=== PATIENT | female | born 1990 | race African-American/Black ===

== ENCOUNTER → 2016-07-14 | Outpatient (CLI) | payer OTHER ==
[~2016-07-14] MED LIST: BUSP10TA PO; CELE20TA PO; GLIM2TA PO; INSULANT SC; JANU100T PO; JANU50TA8 PO; METF-414 PO; OXYC5CAP28 PO; TRAZ25TA PO; VITA500019 PO
[2016-07-14 17:31] LABS: ALBUMIN 3.9 GM/DL (3.2-5.2); ALKALINE PHOSPHATASE 88 U/L (45-117); ALT/SGPT 61 U/L (12-78); ANION GAP 13 MEQ/L (8-16); AST/SGOT 37 U/L (15-37); BILIRUBIN,TOTAL 0.4 MG/DL (0.2-1.0); BLOOD UREA NITROGEN 8 MG/DL (7-18); CALCIUM LEVEL 9.3 MG/DL (8.5-10.1); CARBON DIOXIDE LEVEL 27 MEQ/L (21-32); CHLORIDE LEVEL 100 MEQ/L (98-107); CHOLESTEROL LEVEL 227 MG/DL (<200); CREATININE FOR GFR 0.74 MG/DL (0.55-1.02); GLOMERULAR FILTRATION RATE > 60.0 (>60); GLUCOSE, FASTING 206 MG/DL (70-105); POTASSIUM SERUM 3.6 MEQ/L (3.5-5.1); SODIUM LEVEL 140 MEQ/L (136-145); TOTAL PROTEIN 7.8 GM/DL (6.4-8.2); TRIGLYCERIDES LEVEL 267 MG/DL (<150)
== END ==
LOC: M WUC 14:37
PROVIDERS: ATTEND Family Medicine Addiction Medicine
DX: E11.9 Type 2 diabetes mellitus without complications (principal)

== ENCOUNTER → 2016-07-14 | Outpatient (CLI) | payer OTHER | LOC: M WUC 14:34 | PROVIDERS: ATTEND Physician Assistant Medical | DX: E11.65 Type 2 diabetes mellitus with hyperglycemia (principal) ==

== ENCOUNTER 2016-08-16 12:32 | Emergency (ER) | payer OTHER ==
[~2016-08-16] VITALS: Ht 167.6 cm; Wt 125.6 kg
[2016-08-16] MEDS ORDERED: OMEP10CASR PO (13:17)
[2016-08-16] MEDS ORDERED: VICT18IN SC (13:17)
[2016-08-16] MEDS ORDERED: HUMA100I3 SC (13:17)
[2016-08-16] MEDS ORDERED: TOUJ1.2I SC (13:17)
[2016-08-16] MEDS ORDERED: MORPHINE 4 MG/ML 1ML SYRINGE IV ONE (17:00)
[2016-08-16] MEDS ORDERED: NS 1,000 ML IV ONE (17:00)
[2016-08-16] MEDS ORDERED: METOCLOPRAMIDE INJ 10MG/2ML VIAL (J2765) IV ONE (17:00)
[2016-08-16] MEDS ORDERED: GASTROGRAFIN SOLUTION 30ML (Q9963) As Ordered ONE (17:07)
[2016-08-16] MEDS ORDERED: GASTROGRAFIN SOLUTION 30ML (Q9963) PO ONE ×2 (17:15)
[2016-08-16 17:55] LABS: BASO % 0.4 % (0.0-1.0); EOS # 0.1 K/mm3 (0.0-0.50); EOS % 1.3 % (0.0-3.0); LARGE UNSTAINED CELL # 0.2 K/mm3 (0.0-0.4); LARGE UNSTAINED CELL % 2.4 % (0.0-4.0); LYMPH # 2.4 K/mm3 (1.5-6.5); LYMPH % 36.7 % (24.0-44.0); MEAN CORPUSCULAR HEMOGLOBIN 29.9 pg (27.0-33.0); MEAN CORPUSCULAR HGB CONC 33.7 g/dl (32.0-36.5); MEAN CORPUSCULAR VOLUME 88.8 fl (80.0-96.0); MONO # 0.3 K/mm3 (0.0-0.8); MONO % 4.4 % (0.0-5.0); NEUTROPHILS # 3.6 K/mm3 (1.8-7.7); NEUTROPHILS % 54.8 % (36.0-66.0); PLATELET COUNT, AUTOMATED 214 k/mm3 (150-450); RED CELL DISTRIBUTION WIDTH 12.4 % (11.5-14.5); WHITE BLOOD COUNT 6.5 K/mm3 (4.0-10.0)
[2016-08-16 18:06] LABS: ALBUMIN 3.7 GM/DL (3.2-5.2); ALBUMIN/GLOBULIN RATIO 0.88 (1.00-1.93); ALKALINE PHOSPHATASE 92 U/L (45-117); ALT/SGPT 44 U/L (12-78); ANION GAP 10 MEQ/L (8-16); AST/SGOT 28 U/L (15-37); BILIRUBIN,DIRECT < 0.1 MG/DL (0.0-0.2); BILIRUBIN,TOTAL 0.3 MG/DL (0.2-1.0); BLOOD UREA NITROGEN 9 MG/DL (7-18); CARBON DIOXIDE LEVEL 26 MEQ/L (21-32); CHLORIDE LEVEL 103 MEQ/L (98-107); CREATININE FOR GFR 0.74 MG/DL (0.55-1.02); GLOMERULAR FILTRATION RATE > 60.0 (>60); GLUCOSE, FASTING 271 MG/DL (70-105); POTASSIUM SERUM 3.8 MEQ/L (3.5-5.1); SODIUM LEVEL 139 MEQ/L (136-145); TOTAL PROTEIN 7.9 GM/DL (6.4-8.2)
[2016-08-16] MEDS ORDERED: ISOVUE-370 76% 100ML VIAL (Q9967) As Ordered ONE (18:39)
--- NOTE | 2016-08-16 19:25 | REP ---
CT abdomen pelvis with IV and oral contrast: History: Lower abdominal pain. Blood in the stool. Question inflammatory bowel disease. CT contrast dose: 100 mL of Isovue 370 is administered intravenously. Comparison CT study 03/11/2016. CT findings: Preliminary digital manager drug safety radiograph is unremarkable. Lung window settings demonstrate that the lung bases are clear. There is moderate diffuse fatty infiltration of the liver again noted. No focal liver mass lesion is seen. Spleen is unremarkable. There is an accessory splenule anteriorly. This is unchanged. No adrenal lesion is observed on either side. No pancreatic mass or cyst is seen. The gallbladder is unremarkable. The kidneys enhance symmetrically and are morphologically intact. No abdominal wall defect is appreciated. No uterine or ovarian mass lesion is seen. There is some mural thickening in one of the distal ileal loops compatible with inflammatory bowel disease. This is not at the terminal most ileum but in the midline and to the left of midline in the distal ileum. No evidence of abscess or free air. No obstruction is seen. Normal appendix is observed. There are some regional lymph nodes in the small bowel mesentery. These are unchanged from the 03/11/2016 prior study. Urinary bladder is intact. Bone window settings show no bony destructive lesion. The SI joints are unremarkable. Impression: Mural thickening in one of the distal ileal small bowel loops consistent with inflammatory bowel disease such as Crohn's. There are a few slightly hypertrophied right lower quadrant mesenteric lymph nodes. There is moderate diffuse fatty infiltration of the liver. No other significant abnormality. Signed by Chuck Quijano MD 08/16/2016 08:23 P
[2016-08-16] MEDS ORDERED: FLAG500T PO (20:28)
[2016-08-16] MEDS ORDERED: PRED20TA PO (20:28)
[2016-08-16] MEDS ORDERED: HYDR-3713 PO (20:28)
[2016-08-16 20:35] VITALS: BP 126/75
--- NOTE | 2016-08-17 11:32 | ED PDOC ---
Provider Note radiology report faxed to Zoraida Rosario MD Aug 17, 2016 11:32
== END 2016-08-16 20:42 | disposition home or self-care (01) ==
LOC: M ED 14:13
DX: K50.90 Crohn's disease, unspecified, without complications (principal); K21.9 Gastro-esophageal reflux disease without esophagitis; E11.9 Type 2 diabetes mellitus without complications; E28.2 Polycystic ovarian syndrome; F32.9 Major depressive disorder, single episode, unspecified; F60.3 Borderline personality disorder; Z79.899 Other long term (current) drug therapy; Z79.4 Long term (current) use of insulin
CPT/HCPCS: 74177; 80048; 80076; 81001; 81025; 83690; 85025; 96374; 96375; 99283; J2765; Q9963; Q9967

== ENCOUNTER → 2016-08-17 | Outpatient (CLI) | payer OTHER ==
[~2016-08-17] MED LIST changes: +FLAG500T PO; +HUMA100I3 SC; +HYDR-3713 PO; +OMEP10CASR PO; +PRED20TA PO; +TOUJ1.2I SC; +VICT18IN SC
--- NOTE | 2016-08-17 11:25 | REP ---
Gastric emptying nuclear scintigraphy: History: Nausea, vomiting, early satiety and heartburn. Technique: 0.929 mCi of technetium-99m sulfur colloid was ingested in two scrambled eggs and 6 ounces of water and sequential anterior and posterior images are acquired for an 89-minute imaging observation period. Regions of interest are drawn around the stomach to plot gastric emptying. Scintigraphic findings: Expected T1/2 is 90 minutes. Negligible % emptying is observed in this patient during the 89-minute imaging observation period. The T1 half is not calculable as no observable emptying was recorded. Impression: Markedly delayed gastric emptying. No observed gastric emptying during the 89-minute imaging observation. Signed by Chuck Quijano MD 08/17/2016 11:16 A
--- NOTE | 2016-08-17 18:09 | REP ---
Clinical: Sitz marker study with chronic nausea. Technique: Two supine views of the abdomen and pelvis. Findings: The bowel gas pattern is nonspecific and contrast is identified within the colon related to recent CT evaluation. No residual sitz markers are identified within the enteric system. No organomegaly. No abnormal calcifications. Skeletal structures are intact. Impression: Nonspecific bowel gas pattern. Residual enteric colonic contrast from prior CT. No residual sitz markers. Signed by Ye Johnson MD 08/17/2016 06:01 P
== END ==
LOC: M RAD 08:43
PROVIDERS: ATTEND Physician Assistant Medical
DX: R11.2 Nausea with vomiting, unspecified (principal); R68.81 Early satiety; R12 Heartburn; E11.9 Type 2 diabetes mellitus without complications; R19.8 Other specified symptoms and signs involving the digestive system and abdomen

== ENCOUNTER → 2016-08-19 | Outpatient (CLI) | payer OTHER ==
[~2016-08-19] MED LIST changes: +E-Z PAQUE 60% w/v SUSP 355ML BOTTLE As Ordered ONE; +E-Z-GAS II EFFERVESCENT PACKET (SODIUM BICARB./CITRIC ACID/SIMETHICONE) As Ordered ONE; +E-Z-HD 98% w/w 340GM SUSP BTL As Ordered ONE
--- NOTE | 2016-08-19 16:49 | REP ---
ESOPHAGRAM, AIR CONTRAST: The procedure was performed under the direct supervision of Dr. Quijano. The images were reviewed with Dr. Quijano. A single view PA chest x-ray is submitted as a wildlife biology internship film. There is no change compared to a previous chest x-ray performed on 06/08/2015. Liquid barium and gas producing granules were given in the erect position as well as liquid barium in the prone oblique positions in order to perform a double contrast esophagram examination. The oral and pharyngeal stages of deglutition are unremarkable. Esophageal transport is prompt and efficient and there is no esophagitis, stricture, mucosal ring or hiatal hernia. The GE junction is patulous and there is gastroesophageal reflux demonstrated to the level of the thoracic inlet. IMPRESSION: The GE junction is patulous and there is gastroesophageal reflux demonstrated to the level of the thoracic inlet. Otherwise unremarkable double contrast esophagram examination. 40 seconds of fluoroscopy time was utilized for this procedure. Reviewed by MARY Harvey 08/20/2016 02:13 PEdited and Signed by Chuck Quijano MD 08/20/2016 05:02 P
== END ==
LOC: M RAD 10:01
PROVIDERS: ATTEND Physician Assistant Medical
DX: K21.9 Gastro-esophageal reflux disease without esophagitis (principal); R13.10 Dysphagia, unspecified; R12 Heartburn

== ENCOUNTER → 2016-08-27 | Outpatient (CLI) | payer OTHER ==
[~2016-08-27] VITALS: Ht 170.2 cm; Wt 125.6 kg
[~2016-08-27] MED LIST changes: -E-Z PAQUE 60% w/v SUSP 355ML BOTTLE As Ordered ONE; -E-Z-GAS II EFFERVESCENT PACKET (SODIUM BICARB./CITRIC ACID/SIMETHICONE) As Ordered ONE; -E-Z-HD 98% w/w 340GM SUSP BTL As Ordered ONE; +LIDOCAINE 2% INJ 100 MG/5 ML SDV (FOR ANES.) As Ordered ONE; +MIDAZOLAM INJ 2 MG/2 ML VIAL (J2250) As Ordered ONE; +NS 1,000 ML IV SCH; +PROPOFOL 500 MG/50 ML VIAL As Ordered ONE
--- NOTE | 2016-08-27 11:47 | ROOR ---
Patient Name: Courtney Garcia Procedure Date: 08/27/2016 11:33 AM Date of : 1990 Age: 26 Room: [facility] Gender: Female Note Status: Finalized Procedure: Upper GI endoscopy Indications: Gastroparesis, Nausea with vomiting Providers: Arturo JUNIOR MD Referring MD: Rocky BOLDEN MD Requesting Provider: Medicines: Monitored Anesthesia Care Complications: No immediate complications. Procedure: Pre-Anesthesia Assessment: - The heart rate, respiratory rate, oxygen saturations, blood pressure, adequacy of pulmonary ventilation, and response to care were monitored throughout the procedure. The Endoscope was introduced through the mouth, and advanced to the second part of duodenum. The upper GI endoscopy was accomplished without difficulty. The patient tolerated the procedure well. Findings: Non-severe esophagitis was found at the gastroesophageal junction. The esophagus was normal. The stomach was normal. The examined duodenum was normal. Impression: - Non-severe reflux esophagitis. - Normal esophagus. - Normal stomach. - Normal examined duodenum. -(Gastroparesis: there is no gastric oulet obstruction--pylorus is widely patent.) - No specimens collected. Recommendation: - Use Prilosec (omeprazole) 40 mg PO BID indefinitely. --Script sent to pharmacy - Gastroparesis diet: - Eat smaller, more frequent meals throughout the day. - Low fat diet. - Liquid/soft foods are tolerated better than solid foods. - Low fiber/well cooked vegetables are tolerated better than high fiber/fibrous foods/raw vegetables. - Avoid medications that inhibit gastric/intestinal motility such as narcotic medications. Arturo Junior MD Arturo JUNIOR MD 08/27/2016 11:46:41 AM This report has been signed electronically. Number of Addenda: 0 Note Initiated On: 08/27/2016 11:33 AM Estimated Blood Loss: Estimated blood loss: none.
--- NOTE | 2016-08-27 12:00 | ROOR ---
Patient Name: Courtney Garcia Procedure Date: 08/27/2016 11:33 AM Date of : 1990 Age: 26 Room: [facility] Gender: Female Note Status: Finalized Procedure: Colonoscopy Indications: Generalized abdominal pain, Change in bowel habits, Constipation, Diarrhea, suspected diabetic enteropathy Providers: Arturo JUNIOR MD Referring MD: Rocky BOLDEN MD Requesting Provider: Medicines: Monitored Anesthesia Care Complications: No immediate complications. Procedure: Pre-Anesthesia Assessment: - The heart rate, respiratory rate, oxygen saturations, blood pressure, adequacy of pulmonary ventilation, and response to care were monitored throughout the procedure. The Colonoscope was introduced through the anus and advanced to 5 cm into the ileum. The colonoscopy was performed without difficulty. The patient tolerated the procedure well. The quality of the bowel preparation was good. Findings: The perianal and digital rectal examinations were normal. The terminal ileum appeared normal. The colon appeared normal. Biopsies for histology were taken with a cold forceps for evaluation of microscopic colitis. Impression: - The examined portion of the ileum is normal. - The entire colon is normal. Biopsied. Recommendation: - Continue present medications. - Telephone endoscopist for pathology results in 2 weeks. Arturo Junior MD Arturo JUNIOR MD 08/27/2016 11:59:25 AM This report has been signed electronically. Number of Addenda: 0 Note Initiated On: 08/27/2016 11:33 AM Estimated Blood Loss: Estimated blood loss: none.
[2016-08-27 12:18] VITALS: BP 129/83
== END | disposition home or self-care (01) ==
LOC: M OPP 09:45
PROVIDERS: ATTEND Internal Medicine Gastroenterology
DX: R19.4 Change in bowel habit (principal); R10.84 Generalized abdominal pain; K59.00 Constipation, unspecified; R19.7 Diarrhea, unspecified; K31.84 Gastroparesis; R11.2 Nausea with vomiting, unspecified; K21.0 Gastro-esophageal reflux disease with esophagitis; R13.10 Dysphagia, unspecified; E78.5 Hyperlipidemia, unspecified; E11.9 Type 2 diabetes mellitus without complications; R12 Heartburn; F41.9 Anxiety disorder, unspecified; F32.9 Major depressive disorder, single episode, unspecified; E28.2 Polycystic ovarian syndrome; R06.83 Snoring; Z79.4 Long term (current) use of insulin; Z79.899 Other long term (current) drug therapy
CPT/HCPCS: 43235; 45380; 88305; 99156; 99157; J2250

== ENCOUNTER → 2016-09-01 | Outpatient (CLI) | payer OTHER ==
[~2016-09-01] MED LIST changes: +E-Z PAQUE 60% w/v SUSP 355ML BOTTLE As Ordered ONE; -LIDOCAINE 2% INJ 100 MG/5 ML SDV (FOR ANES.) As Ordered ONE; -MIDAZOLAM INJ 2 MG/2 ML VIAL (J2250) As Ordered ONE; -NS 1,000 ML IV SCH; -PROPOFOL 500 MG/50 ML VIAL As Ordered ONE
--- NOTE | 2016-09-01 16:33 | REP ---
SMALL BOWEL FOLLOW THROUGH: The procedure was performed under the direct supervision of Dr. Bill. The images were reviewed with Dr. Bill. The well logging captain mud analysis film shows no organomegaly or pathological masses. The intestinal gas pattern is nonspecific. Liquid barium was administered and the barium column was followed through the small bowel to the level of the terminal ileum. Small bowel transit time is approximately 3 hours and 50 minutes. During fluoroscopy, gentle palpation shows all loops are freely movable and pliable. There are no fixed or angulated loops. The small bowel mucosal pattern is normal in course and caliber. There is no transition to suggest a partial small bowel obstruction. Spot filming of the terminal ileum shows it to be unremarkable. IMPRESSION: Small bowel follow through examination within normal limits. 49 seconds of fluoroscopy time was utilized for this procedure. Reviewed by MARY Harvey 09/01/2016 04:37 PEdited and Signed by Davidson Bill MD 09/01/2016 05:01 P
== END ==
LOC: M RAD 09:08
PROVIDERS: ATTEND Physician Assistant Medical
DX: R93.3 Abnormal findings on diagnostic imaging of other parts of digestive tract (principal)

== ENCOUNTER → 2016-09-14 | Outpatient (CLI) | payer OTHER ==
[~2016-09-14] MED LIST changes: -E-Z PAQUE 60% w/v SUSP 355ML BOTTLE As Ordered ONE
== END ==
LOC: M LAB 16:15
PROVIDERS: ATTEND Physician Assistant Medical
DX: R19.7 Diarrhea, unspecified (principal)

== ENCOUNTER → 2016-10-04 | Outpatient (REF) | payer OTHER | LOC: M LAB REF 12:25 | PROVIDERS: ATTEND Physician Assistant Medical | DX: R19.7 Diarrhea, unspecified (principal) ==

== ENCOUNTER 2016-11-09 13:46 | Emergency (ER) | payer OTHER ==
[~2016-11-09] VITALS: Ht 167.6 cm; Wt 124.7 kg
[2016-11-09] MEDS ORDERED: INVO100T PO (13:56)
[2016-11-09] MEDS ORDERED: KETOROLAC 30 MG/ML VIAL (J1885) IV ONE (14:45)
[2016-11-09] MEDS ORDERED: NS 1,000 ML IV ONE (14:45)
[2016-11-09] MEDS ORDERED: ONDANSETRON 4MG/2ML VIAL (J2405) IV ONE (14:45)
--- NOTE | 2016-11-09 15:11 | REP ---
CT abdomen and pelvis without IV or oral contrast: Renal stone protocol. History: Right-sided abdominal pain, flank pain. Comparison CT study August 16, 2016. CT findings: Preliminary digital labor economics professor radiograph is unremarkable. The lung bases are essentially clear. There is moderate diffuse fatty infiltration of the liver. No definite focal liver lesion is seen. The gallbladder is unremarkable. Spleen is unremarkable. There is an accessory splenule again noted anterior to the spleen. No pancreatic lesion is seen. No adrenal abnormality is observed. There is no evidence of hydronephrosis on either side. No intrarenal calculus is seen. No retroperitoneal mass or adenopathy is observed. Small and large intestinal bowel loops are unremarkable. No abdominal wall defect is seen. No bony destructive lesion is seen. Impression: 1. Moderate diffuse fatty infiltration of the liver. 2. Otherwise unremarkable CT study of the abdomen and pelvis without IV or oral contrast. Signed by Chuck Quijano MD 11/09/2016 05:22 P
[2016-11-09 15:12] LABS: BASO % 0.5 % (0.0-1.0); EOS # 0.1 K/mm3 (0.0-0.50); LARGE UNSTAINED CELL # 0.1 K/mm3 (0.0-0.4); LARGE UNSTAINED CELL % 1.5 % (0.0-4.0); LYMPH # 2.2 K/mm3 (1.5-6.5); LYMPH % 35.8 % (24.0-44.0); MEAN CORPUSCULAR HEMOGLOBIN 30.2 pg (27.0-33.0); MEAN CORPUSCULAR VOLUME 88.6 fl (80.0-96.0); MONO # 0.2 K/mm3 (0.0-0.8); MONO % 3.7 % (0.0-5.0); NEUTROPHILS # 3.4 K/mm3 (1.8-7.7); NEUTROPHILS % 56.5 % (36.0-66.0); PLATELET COUNT, AUTOMATED 201 k/mm3 (150-450); RED CELL DISTRIBUTION WIDTH 12.6 % (11.5-14.5)
[2016-11-09 15:45] LABS: ALBUMIN 3.6 GM/DL (3.2-5.2); ALBUMIN/GLOBULIN RATIO 0.95 (1.00-1.93); ALKALINE PHOSPHATASE 113 U/L (45-117); ALT/SGPT 44 U/L (12-78); ANION GAP 12 MEQ/L (8-16); AST/SGOT 23 U/L (15-37); BILIRUBIN,TOTAL 0.3 MG/DL (0.2-1.0); BLOOD UREA NITROGEN 9 MG/DL (7-18); CALCIUM LEVEL 9.6 MG/DL (8.5-10.1); CARBON DIOXIDE LEVEL 23 MEQ/L (21-32); CHLORIDE LEVEL 99 MEQ/L (98-107); CREATININE FOR GFR 0.97 MG/DL (0.55-1.02); GLOMERULAR FILTRATION RATE > 60.0 (>60); POTASSIUM SERUM 4.3 MEQ/L (3.5-5.1); SODIUM LEVEL 134 MEQ/L (136-145); TOTAL PROTEIN 7.4 GM/DL (6.4-8.2)
[2016-11-09 15:55] LABS: GLUCOSE, FASTING 409 MG/DL (70-105)
[2016-11-09] MEDS ORDERED: HumaLOG INSULIN (NovoLOG) PER UNIT SC STA (16:01)
[2016-11-09] MEDS ORDERED: CLOTCRE3 TOP (17:04)
[2016-11-09 17:38] VITALS: BP 144/80
== END 2016-11-09 17:41 | disposition home or self-care (01) ==
LOC: M ED 14:28
DX: R30.0 Dysuria (principal); L29.8 Other pruritus; E11.8 Type 2 diabetes mellitus with unspecified complications; R10.9 Unspecified abdominal pain; K76.0 Fatty (change of) liver, not elsewhere classified

== ENCOUNTER → 2017-04-25 | Outpatient (CLI) | payer OTHER ==
[~2017-04-25] MED LIST changes: +BUSP15TA47; +CLOTCRE3 TOP; +INVO100T PO; +LINZ290C; +LISI2.5T3 PO; +MIRT30TA3; +NAPR500T PO; +RANI15TA PO; +SIMV40TA2; +VENL75CA47
--- NOTE | 2017-04-25 12:55 | REP ---
Clinical: Mass. Technique: AP and lateral soft tissue neck radiographs. Findings: The airway is patent, midline and normal in appearance. The surrounding soft tissues are unremarkable. No adenoid or tonsillar hypertrophy is appreciated. The osseous structures are intact and normal. No subcutaneous emphysema or radiodense foreign body. Impression: Normal soft tissue neck radiographs. Signed by Ye Johnson MD 04/25/2017 12:46 P
== END ==
LOC: M WUC 12:34
PROVIDERS: ATTEND Physician Assistant
DX: R22.1 Localized swelling, mass and lump, neck (principal)

== ENCOUNTER → 2017-04-27 | Outpatient (CLI) | payer OTHER ==
--- NOTE | 2017-04-27 16:55 | REP ---
ULTRASOUND SOFT TISSUES NECK: Real-time sonographic evaluation of the soft tissues of the neck are performed for palpable abnormality for the past 3 weeks. In the submental region. There are multiple lymph nodes identified. The largest measures 1.3 x 1.2 x 1.2 cm. This is mildly enlarged. With duplex Doppler evaluation this appears somewhat hyperemic. This may represent an inflamed lymph node. Other smaller lymph nodes are present. Signed by Christopher Lopez MD 05/02/2017 05:08 P
== END ==
LOC: M RAD 15:43
PROVIDERS: ATTEND Physician Assistant
DX: R22.1 Localized swelling, mass and lump, neck (principal)

== ENCOUNTER 2017-05-02 18:30 | Emergency (ER) | payer OTHER ==
[~2017-05-02] VITALS: Ht 167.6 cm; Wt 122.7 kg
[~2017-05-02 18:30] MED LIST changes: -BUSP15TA47; -LINZ290C; -LISI2.5T3 PO; -MIRT30TA3; -NAPR500T PO; -RANI15TA PO; -SIMV40TA2; -VENL75CA47
[2017-05-02] MEDS ORDERED: RANI15TA PO (18:45)
[2017-05-02] MEDS ORDERED: SIMV40TA2 (18:45)
[2017-05-02] MEDS ORDERED: MIRT30TA3 (18:45)
[2017-05-02] MEDS ORDERED: LINZ290C (18:45)
[2017-05-02] MEDS ORDERED: LISI2.5T3 PO (18:45)
[2017-05-02] MEDS ORDERED: VENL75CA47 (18:45)
[2017-05-02] MEDS ORDERED: BUSP15TA47 (18:45)
[2017-05-02 21:56] VITALS: BP 154/99
[2017-05-02] MEDS ORDERED: NAPROXEN 250 MG TAB PO ONE (23:15)
[2017-05-02] MEDS ORDERED: NAPR500T PO (23:17)
== END 2017-05-02 23:36 | disposition home or self-care (01) ==
LOC: M ED 18:30
DX: R59.0 Localized enlarged lymph nodes (principal); Z79.899 Other long term (current) drug therapy; Z79.4 Long term (current) use of insulin

== ENCOUNTER → 2017-05-06 | Outpatient (REF) | payer OTHER ==
[~2017-05-06] MED LIST changes: +BUSP15TA47; +LINZ290C; +LISI2.5T3 PO; +MIRT30TA3; +NAPR500T PO; +RANI15TA PO; +SIMV40TA2; +VENL75CA47
[2017-05-06 19:12] LABS: BASO # 0.1 10^3/uL (0.0-0.2); BASO % 0.9 % (0.0-1.0); EOS # 0.1 10^3/uL (0.0-0.50); EOS % 1.3 % (0.0-3.0); IMMATURE GRANULOCYTE % 0.9 % (0-0); LYMPH # 2.6 10^3/uL (1.5-6.5); LYMPH % 46.5 % (24.0-44.0); MEAN CORPUSCULAR HGB CONC 33.7 g/dl (32.0-36.5); MONO # 0.4 10^3/uL (0.0-0.8); MONO % 6.7 % (0.0-5.0); NEUTROPHILS # 2.4 10^3/uL (1.8-7.7); NEUTROPHILS % 43.7 % (36.0-66.0); PLATELET COUNT, AUTOMATED 208 10^3/uL (150-450); RED CELL DISTRIBUTION WIDTH 11.9 % (11.5-14.5); WHITE BLOOD COUNT 5.6 10^3/uL (4.0-10.0)
== END ==
LOC: M SFHCCLAY 11:51
PROVIDERS: ATTEND Family Medicine
DX: R22.1 Localized swelling, mass and lump, neck (principal); R53.83 Other fatigue

== ENCOUNTER → 2017-05-19 | Outpatient (CLI) | payer OTHER ==
--- NOTE | 2017-05-19 17:37 | REP ---
Soft-tissue neck CT study without contrast: History: Localized swelling. Mass or lump. Comparison soft tissue neck x-ray April 25, 2017. Comparison sonography April 27, 2017 showed multiple lymph nodes the largest of which was 1.3 centimeters in greatest diameter. CT findings: There is shoddy bilateral cervical lymphadenopathy in the suprahyoid and infrahyoid neck. This includes submental adenopathy where the largest lymph node is 1.7 x 1.4 cm. The largest lymph node in the neck is in the left anterior jugular chain at the level of the thyroid cartilage posterior to the sternocleidomastoid. This lymph node measures 19 x 22 x 31 mm. Thyroid lobes are normal and symmetric. Salivary glands are unremarkable. No tonsillar or peritonsillar mass is seen. The visualized paranasal sinuses are clear. The lung apices are clear. No bony abnormality is seen. Impression: Cervical lymphadenopathy with the largest lymph node measuring up to 3.1 cm. This combined with the anechoic appearance of the lymph node seen sonographically is somewhat worrisome. I would recommend ultrasound guided fine needle aspiration or core needle biopsy of the largest cervical lymph node. Signed by Chuck Quijano MD 05/20/2017 08:17 A
== END ==
LOC: M RAD 16:31
PROVIDERS: ATTEND Family Medicine
DX: R22.1 Localized swelling, mass and lump, neck (principal)

== ENCOUNTER → 2017-05-25 | Outpatient (REF) | payer OTHER | LOC: M LAB REF 12:34 | PROVIDERS: ATTEND Otolaryngology | DX: E04.1 Nontoxic single thyroid nodule (principal) ==

== ENCOUNTER 2017-06-13 10:09 | Day surgery (SDC) | payer OTHER ==
[2017-06-13] MEDS ORDERED: LR 1,000 ML IV ×4 (10:30→15:00)
[2017-06-13] MEDS ORDERED: HumaLOG INSULIN (NovoLOG) PER UNIT As Ordered (10:54)
[2017-06-13 11:06] LABS: BEDSIDE GLUCOSE 318 MG/DL (70-105)
[2017-06-13] MEDS ORDERED: HumaLOG INSULIN (NovoLOG) PER UNIT SC (11:15)
[2017-06-13 12:08] LABS: CONTROL LINE UCG INT CTR LINE PRESENT; URINE PREG TEST NEGATIVE (NEGATIVE)
[2017-06-13 12:24] LABS: BEDSIDE GLUCOSE 266 MG/DL (70-105)
[2017-06-13] MEDS ORDERED: LIDOCAINE 2% INJ 100 MG/5 ML SDV (FOR ANES.) As Ordered (13:41)
[2017-06-13] MEDS ORDERED: fentaNYL 100 MCG/2 ML INJECTION (J3010) As Ordered ×2 (13:41→13:48)
[2017-06-13] MEDS ORDERED: MIDAZOLAM INJ 2 MG/2 ML VIAL (J2250) As Ordered (13:41)
[2017-06-13] MEDS ORDERED: PROPOFOL 200 MG/20 ML VIAL As Ordered (13:41)
[2017-06-13] MEDS ORDERED: ROCURONIUM BROMIDE 50 MG/5 ML VIAL As Ordered (13:41)
[2017-06-13] MEDS: BACITRACIN OINT 30GM As Ordered (13:57)
[2017-06-13] MEDS: LIDOCAINE W/EPINEPHRINE 1% 20ML VIAL As Ordered (13:57)
[2017-06-13] MEDS ORDERED: ONDANSETRON 4MG/2ML VIAL (J2405) As Ordered (14:05)
[2017-06-13] MEDS ORDERED: GLYCOPYRROLATE INJ 0.2 MG/ML 2 ML VIAL As Ordered (14:05)
[2017-06-13] MEDS ORDERED: KETOROLAC 60 MG/2 ML VIAL (J1885) As Ordered (14:05)
[2017-06-13] MEDS ORDERED: NEOSTIGMINE 10 MG/10 ML VIAL (J2710) As Ordered (14:05)
[2017-06-13] MEDS ORDERED: ACETAMINOPH W/CODEINE #3 TAB UD PO (15:00)
[2017-06-13] MEDS ORDERED: fentaNYL 100 MCG/2 ML INJECTION (J3010) IV (15:00)
[2017-06-13 15:25] LABS: BEDSIDE GLUCOSE 221 MG/DL (70-105)
[2017-06-13] MEDS: ONDANSETRON 4MG/2ML VIAL (J2405) IV (15:41)
== END 2017-06-13 17:13 | disposition home or self-care (01) ==
LOC: M SDC 10:09
DX: R22.1 Localized swelling, mass and lump, neck (principal); E11.65 Type 2 diabetes mellitus with hyperglycemia; E11.43 Type 2 diabetes mellitus with diabetic autonomic (poly)neuropathy; E78.00 Pure hypercholesterolemia, unspecified; K21.9 Gastro-esophageal reflux disease without esophagitis; F41.9 Anxiety disorder, unspecified; F32.1 Major depressive disorder, single episode, moderate; F60.3 Borderline personality disorder; K31.84 Gastroparesis; E66.01 Morbid (severe) obesity due to excess calories; Z68.44 Body mass index [BMI] 60.0-69.9, adult; Z79.4 Long term (current) use of insulin; Z79.899 Other long term (current) drug therapy
CPT/HCPCS: 21555

== ENCOUNTER 2017-06-20 22:47 | Emergency (ER) | payer OTHER ==
[2017-06-21 04:38] LABS: CONTROL LINE HCG INT CTR LINE PRESENT; HCG, SERUM QUALITATIVE NEGATIVE (NEGATIVE)
[2017-06-21 04:46] LABS: BLOOD UREA NITROGEN 8 MG/DL (7-18); GLUCOSE, FASTING 192 MG/DL (70-105)
[2017-06-21 04:47] LABS: ANION GAP 9 MEQ/L (8-16); C REACTIVE PROTEIN QUANTITATIV 0.66 MG/DL (0.00-0.30); CALCIUM LEVEL 8.4 MG/DL (8.5-10.1); CARBON DIOXIDE LEVEL 26 MEQ/L (21-32); CHLORIDE LEVEL 105 MEQ/L (98-107); CREATININE FOR GFR 0.62 MG/DL (0.55-1.02); GLOMERULAR FILTRATION RATE > 60.0 (>60); POTASSIUM SERUM 3.9 MEQ/L (3.5-5.1); SODIUM LEVEL 140 MEQ/L (136-145)
[2017-06-21 04:51] LABS: HEMATOCRIT 38.6 % (36.0-47.0); HEMOGLOBIN 12.9 g/dl (12.0-16.0); MEAN CORPUSCULAR HEMOGLOBIN 28.6 pg (27.0-33.0); MEAN CORPUSCULAR VOLUME 85.6 fl (80.0-96.0); RED BLOOD COUNT 4.51 10^6/uL (4.00-5.40); WHITE BLOOD COUNT 5.8 10^3/uL (4.0-10.0)
[2017-06-21 04:52] LABS: BASO % 0.7 % (0.0-1.0); EOS # 0.3 10^3/uL (0.0-0.50); IMMATURE GRANULOCYTE % 0.3 % (0-0); LYMPH # 2.7 10^3/uL (1.5-6.5); LYMPH % 46.1 % (24.0-44.0); MEAN CORPUSCULAR HGB CONC 33.4 g/dl (32.0-36.5); MONO # 0.4 10^3/uL (0.0-0.8); NEUTROPHILS # 2.4 10^3/uL (1.8-7.7); NEUTROPHILS % 40.9 % (36.0-66.0); PLATELET COUNT, AUTOMATED 258 10^3/uL (150-450); RED CELL DISTRIBUTION WIDTH 12.3 % (11.5-14.5)
[2017-06-21] MEDS ORDERED: ISOVUE-370 76% 100ML VIAL (Q9967) As Ordered (04:52)
== END 2017-06-21 06:16 | disposition home or self-care (01) ==
LOC: M ED 22:47
DX: R68.84 Jaw pain (principal); G89.18 Other acute postprocedural pain; Z79.899 Other long term (current) drug therapy; Z79.4 Long term (current) use of insulin
CPT/HCPCS: Q9967

== ENCOUNTER → 2017-07-08 | Outpatient (REF) | payer OTHER | LOC: M SFHCWAGY 13:53 | DX: Z12.4 Encounter for screening for malignant neoplasm of cervix (principal) | CPT/HCPCS: 88142 ==

== ENCOUNTER → 2017-07-15 | Outpatient (REF) | payer OTHER ==
[2017-07-15 18:12] LABS: ALBUMIN 3.3 GM/DL (3.2-5.2); ALBUMIN/GLOBULIN RATIO 0.89 (1.00-1.93); ALKALINE PHOSPHATASE 76 U/L (45-117); ALT/SGPT 27 U/L (12-78); ANION GAP 9 MEQ/L (8-16); AST/SGOT 15 U/L (7-37); BILIRUBIN,TOTAL 0.3 MG/DL (0.2-1.0); BLOOD UREA NITROGEN 13 MG/DL (7-18); CALCIUM LEVEL 8.6 MG/DL (8.5-10.1); CARBON DIOXIDE LEVEL 26 MEQ/L (21-32); CHLORIDE LEVEL 102 MEQ/L (98-107); CREATININE FOR GFR 0.62 MG/DL (0.55-1.30); GLOMERULAR FILTRATION RATE > 60.0 (>60); GLUCOSE, FASTING 266 MG/DL (70-100); POTASSIUM SERUM 4.5 MEQ/L (3.5-5.1); SODIUM LEVEL 137 MEQ/L (136-145)
[2017-07-15 18:30] LABS: ESTIMATED AVERAGE GLUCOSE 237 MG/DL (60-110); HEMOGLOBIN A1c 9.9 %
== END ==
LOC: M SFHCCLAY 09:59
DX: E11.65 Type 2 diabetes mellitus with hyperglycemia (principal)

== ENCOUNTER → 2017-07-15 | Outpatient (CLI) | payer OTHER | LOC: M SLEEP HO 12:32 | DX: G47.30 Sleep apnea, unspecified (principal) ==

== ENCOUNTER → 2017-08-01 | Outpatient (REF) | payer OTHER | LOC: M LAB REF 11:58 | DX: R19.7 Diarrhea, unspecified (principal) ==

== ENCOUNTER → 2017-09-08 | Outpatient (CLI) | payer OTHER ==
[~2017-09-08] MED LIST changes: -BUSP10TA PO; -BUSP15TA47; -CELE20TA PO; -CLOTCRE3 TOP; -FLAG500T PO; +GASTROGRAFIN SOLUTION 30ML (Q9963) As Ordered; -GLIM2TA PO; -HUMA100I3 SC; -HYDR-3713 PO; -INSULANT SC; -INVO100T PO; +ISOVUE-370 76% 100ML VIAL (Q9967) As Ordered; -JANU100T PO; -JANU50TA8 PO; -LINZ290C; -LISI2.5T3 PO; -METF-414 PO; -MIRT30TA3; -NAPR500T PO; -OMEP10CASR PO; -OXYC5CAP28 PO; -PRED20TA PO; -RANI15TA PO; -SIMV40TA2; -TOUJ1.2I SC; -TRAZ25TA PO; -VENL75CA47; -VICT18IN SC; -VITA500019 PO
== END ==
LOC: M RAD 09:38
DX: R19.7 Diarrhea, unspecified (principal); R10.84 Generalized abdominal pain
CPT/HCPCS: Q9963

== ENCOUNTER 2017-09-09 15:21 | Emergency (ER) | payer OTHER ==
[2017-09-09 17:05] LABS: KETONE, URINE AUTO RFX TRACE mg/dL (NEGATIVE); LEUKOCYTE ESTERASE UR AUTO RFX TRACE (NEGATIVE); MUCUS, URINE RFX SMALL (NEGATIVE); NITRITE, URINE AUTO RFX NEGATIVE (NEGATIVE); RBC, URINE AUTO RFX 2 /HPF (0-3); SPECIFIC GRAVITY UR AUTO RFX 1.037 (1.002-1.035); SQUAM EPITHELIAL CELL UR AURFX 0 /HPF (0-6); WBC, URINE AUTO RFX 1 /HPF (0-3)
[2017-09-09 18:10] LABS: BASO % 0.4 % (0.0-1.0); EOS # 0.1 10^3/uL (0.0-0.50); EOS % 1.4 % (0.0-3.0); HEMATOCRIT 44.5 % (36.0-47.0); HEMOGLOBIN 15.2 g/dl (12.0-15.5); IMMATURE GRANULOCYTE % 0.4 % (0-3.0); LYMPH # 2.9 10^3/uL (1.5-6.5); LYMPH % 39.7 % (24.0-44.0); MEAN CORPUSCULAR HGB CONC 34.2 g/dl (32.0-36.5); MEAN CORPUSCULAR VOLUME 84.9 fl (80.0-96.0); MONO # 0.4 10^3/uL (0.0-0.8); MONO % 5.5 % (0.0-5.0); NEUTROPHILS # 3.8 10^3/uL (1.8-7.7); NEUTROPHILS % 52.6 % (36.0-66.0); PLATELET COUNT, AUTOMATED 255 10^3/uL (150-450); RED BLOOD COUNT 5.24 10^6/uL (4.00-5.40); RED CELL DISTRIBUTION WIDTH 12.8 % (11.5-14.5); WHITE BLOOD COUNT 7.2 10^3/uL (4.0-10.0)
[2017-09-09 18:30] LABS: ALBUMIN 3.9 GM/DL (3.2-5.2); ALBUMIN/GLOBULIN RATIO 0.87 (1.00-1.93); ALKALINE PHOSPHATASE 115 U/L (45-117); ALT/SGPT 38 U/L (12-78); AMYLASE 30 U/L (25-115); ANION GAP 9 MEQ/L (8-16); AST/SGOT 22 U/L (7-37); BILIRUBIN,DIRECT < 0.1 MG/DL (0.0-0.2); BILIRUBIN,TOTAL 0.3 MG/DL (0.2-1.0); BLOOD UREA NITROGEN 9 MG/DL (7-18); CALCIUM LEVEL 9.1 MG/DL (8.5-10.1); CARBON DIOXIDE LEVEL 24 MEQ/L (21-32); CHLORIDE LEVEL 101 MEQ/L (98-107); CREATININE FOR GFR 0.77 MG/DL (0.55-1.30); GLOMERULAR FILTRATION RATE > 60.0 (>60); GLUCOSE, FASTING 324 MG/DL (70-100); LIPASE 65 U/L (73-393); POTASSIUM SERUM 3.9 MEQ/L (3.5-5.1); SODIUM LEVEL 134 MEQ/L (136-145); TOTAL PROTEIN 8.4 GM/DL (6.4-8.2)
== END 2017-09-09 19:30 | disposition home or self-care (01) ==
LOC: M ED 15:21
DX: R10.9 Unspecified abdominal pain (principal); R73.09 Other abnormal glucose; K31.84 Gastroparesis; K21.9 Gastro-esophageal reflux disease without esophagitis; F41.9 Anxiety disorder, unspecified; F32.9 Major depressive disorder, single episode, unspecified; E28.2 Polycystic ovarian syndrome; Z79.899 Other long term (current) drug therapy; Z79.4 Long term (current) use of insulin
CPT/HCPCS: 82150

== ENCOUNTER → 2018-01-18 | Outpatient (CLI) | payer OTHER ==
[2018-01-18 14:17] LABS: ANION GAP 10 MEQ/L (8-16); BLOOD UREA NITROGEN 11 MG/DL (7-18); CALCIUM LEVEL 9.5 MG/DL (8.5-10.1); CARBON DIOXIDE LEVEL 28 MEQ/L (21-32); CHLORIDE LEVEL 99 MEQ/L (98-107); CREATININE FOR GFR 0.79 MG/DL (0.55-1.30); GLOMERULAR FILTRATION RATE > 60.0 (>60); GLUCOSE, FASTING 333 MG/DL (70-100); POTASSIUM SERUM 4.7 MEQ/L (3.5-5.1); SODIUM LEVEL 137 MEQ/L (136-145)
[2018-01-18 14:34] LABS: ESTIMATED AVERAGE GLUCOSE 203 MG/DL (60-110); HEMOGLOBIN A1c 8.7 %
[2018-01-19 14:16] LABS: C-PEPTIDE 3.9 ng/mL (1.1-4.4)
== END ==
LOC: M WUC 11:36
DX: E11.65 Type 2 diabetes mellitus with hyperglycemia (principal)
CPT/HCPCS: 83036

== ENCOUNTER 2018-05-28 23:15 | Emergency (ER) | payer MEDICAID, OTHER ==
[~2018-05-28] VITALS: Ht 167.6 cm; Wt 131.8 kg
[~2018-05-28 23:15] MED LIST changes: +ATOR40TA75 PO; +BUSP10TA PO; +BUSP15TA47; +CELE20TA PO; +CLOTCRE3 TOP; +FLAG500T PO; -GASTROGRAFIN SOLUTION 30ML (Q9963) As Ordered; +GLIM2TA PO; +HUMA100I3 SC; +HYDR-3713 PO; +INSULANT SC; +INVO100T PO; -ISOVUE-370 76% 100ML VIAL (Q9967) As Ordered; +JANU100T PO; +JANU50TA8 PO; +LINZ290C; +LISI2.5T5 PO; +METF-414 PO; +MIRT30TA3 PO; +NAPR-49 PO; +OMEP10CASR PO; +OXYC5CAP28 PO; +PRED20TA PO; +RANI15TA PO; +SIMV40TA2 PO; +TOUJ1.2I SC; +TRAZ25TA PO; +VENL150C43 PO; +VENL75CA47 PO; +VICT18IN SC; +VITA500019 PO; +ZOFR4TAB16 PO
[2018-05-28] MEDS ORDERED: ADME100I SC (23:23)
[2018-05-28] MEDS ORDERED: DULC10SU2 PR (23:23)
[2018-05-29] MEDS ORDERED: NS 1,000 ML IV ONE
[2018-05-29 00:58] LABS: BASO % 0.4 % (0.0-1.0); EOS # 0.1 10^3/uL (0.0-0.50); EOS % 0.9 % (0.0-3.0); HEMATOCRIT 40.5 % (36.0-47.0); HEMOGLOBIN 13.6 g/dl (12.0-15.5); LYMPH # 2.1 10^3/uL (1.5-6.5); LYMPH % 25.2 % (24.0-44.0); MEAN CORPUSCULAR HEMOGLOBIN 29.2 pg (27.0-33.0); MEAN CORPUSCULAR HGB CONC 33.6 g/dl (32.0-36.5); MEAN CORPUSCULAR VOLUME 86.9 fl (80.0-96.0); MONO # 0.4 10^3/uL (0.0-0.8); MONO % 4.4 % (0.0-5.0); NEUTROPHILS # 5.7 10^3/uL (1.8-7.7); NEUTROPHILS % 68.6 % (36.0-66.0); PLATELET COUNT, AUTOMATED 247 10^3/uL (150-450); RED BLOOD COUNT 4.66 10^6/uL (4.00-5.40); WHITE BLOOD COUNT 8.2 10^3/uL (4.0-10.0)
[2018-05-29 01:00] LABS: ALBUMIN 3.6 GM/DL (3.2-5.2); ALT/SGPT 33 U/L (12-78); BILIRUBIN,TOTAL 0.4 MG/DL (0.2-1.0); BLOOD UREA NITROGEN 11 MG/DL (7-18); CARBON DIOXIDE LEVEL 27 MEQ/L (21-32); CHLORIDE LEVEL 104 MEQ/L (98-107); CREATININE FOR GFR 0.71 MG/DL (0.55-1.30); GLOMERULAR FILTRATION RATE > 60.0 (>60); GLUCOSE, FASTING 226 MG/DL (70-100); LIPASE 45 U/L (73-393); POTASSIUM SERUM 4.3 MEQ/L (3.5-5.1); SODIUM LEVEL 138 MEQ/L (136-145); TOTAL PROTEIN 7.8 GM/DL (6.4-8.2)
[2018-05-29] MEDS ORDERED: ONDANSETRON 4MG/2ML VIAL (J2405) IV ONE (01:30)
[2018-05-29] MEDS ORDERED: KETOROLAC 30 MG/ML VIAL (J1885) IV ONE (01:30)
[2018-05-29] MEDS ORDERED: ZOFR4TAB14 PO (01:49)
[2018-05-29 01:55] VITALS: BP 135/82
[2018-05-29] MEDS ORDERED: MAGNESIUM CITRATE 300 ML BTL PO ONE (02:00)
--- NOTE | 2018-05-29 05:52 | REP ---
Clinical: Abdominal pain with nausea and vomiting. Technique: Upright view of the chest with supine and upright views of the abdomen and pelvis. Findings: Frontal upright view of the chest demonstrates no acute cardiopulmonary process or free air below the diaphragm to suspect pneumoperitoneum. Supine and upright views of the abdomen and pelvis demonstrate nonspecific bowel gas pattern without obstruction or perforation. No organomegaly. No abnormal calcifications. Skeletal structures normal for age. Impression: Nonspecific bowel gas pattern. Electronically Signed by eY Johnson MD 05/29/2018 05:43 A
== END 2018-05-29 01:59 | disposition home or self-care (01) ==
LOC: M ED 23:15
DX: K59.00 Constipation, unspecified (principal); E11.9 Type 2 diabetes mellitus without complications; I10 Essential (primary) hypertension; E78.5 Hyperlipidemia, unspecified; K31.84 Gastroparesis; Z79.899 Other long term (current) drug therapy
CPT/HCPCS: 74021; 80053; 83690; 85025; 96374; 96375; 99284; J1885; J2405

== ENCOUNTER → 2018-07-03 | Outpatient (CLI) | payer MEDICAID ==
[~2018-07-03] MED LIST changes: +ADME100I SC; +DULC10SU2 PR; -NAPR-49 PO; +NAPR-50 PO; +ZOFR4TAB14 PO
--- NOTE | 2018-07-03 14:49 | REP ---
Clinical: Pain with diagnosis of stress fracture . Technique: AP, lateral, bilateral oblique views right foot . Findings: The osseous structures and joint spaces are intact and normal. There is no evidence for acute fracture or dislocation. Surrounding soft tissues are unremarkable. No subcutaneous emphysema or radiodense foreign body. Impression: No acute fracture or dislocation. Electronically Signed by Ye Johnson MD 07/03/2018 02:40 P
== END ==
LOC: M WUC 14:18
PROVIDERS: ATTEND Physician Assistant
DX: M79.671 Pain in right foot (principal)

== ENCOUNTER → 2018-09-01 | Outpatient (REF) | payer OTHER | LOC: M SFHCWAGY 13:47 | PROVIDERS: ATTEND Family Medicine | DX: Z12.4 Encounter for screening for malignant neoplasm of cervix (principal); N87.0 Mild cervical dysplasia ==

== ENCOUNTER → 2018-11-27 | Outpatient (CLI) | payer OTHER ==
[~2018-11-27] MED LIST changes: -GLIM2TA PO; +GLIM2TAB29 PO; +LISI-1046 PO; -LISI2.5T5 PO; -NAPR-50 PO; +NAPR-837 PO; +TRAZ1TAB6 PO; -TRAZ25TA PO
--- NOTE | 2018-11-27 09:17 | REP ---
Nickel: Abdominal pain and nausea. Technique: Real time dillard scale ultrasound examination using curved array transducer. Findings: Liver demonstrates mild fatty infiltration without focal hepatic lesion identified. Pancreas is unremarkable. The spleen is mildly enlarged and measures 13.5 x 13.5 x 5.2 cm (splenic index = 948) without significant focal splenic lesion identified. Gallbladder is normal and without gallstones, wall thickening, or pericholecystic fluid. No sonographic Traore's sign was elicited. Common bile duct is upper limits of normal at 7.5 mm diameter without obvious obstructing lesion/cause. The bilateral kidneys are normal in reniform shape without hydronephrosis or obvious abnormality. Right kidney measures 14.8 x 7.0 x 4.9 cm. Left kidney measures 12.8 x 6.6 x 6.6 cm. Abdominal aorta is normal and measures 2.0 cm maximal diameter. No ascites. Impression: 1. Hepatic steatosis without focal hepatic lesion. 2. Mildly enlarged spleen with significant focal splenic abnormality noted. 3. Normal appearance to the gallbladder with CBD upper limits of normal diameter. Electronically Signed by Ye Johnson MD 11/27/2018 09:08 A
== END ==
LOC: M RAD 08:14
DX: K76.0 Fatty (change of) liver, not elsewhere classified (principal); R16.1 Splenomegaly, not elsewhere classified

== ENCOUNTER → 2018-12-08 | Outpatient (CLI) | payer OTHER ==
[2018-12-08 17:34] LABS: ALBUMIN 3.6 GM/DL (3.2-5.2); ALT/SGPT 31 U/L (12-78); BILIRUBIN,TOTAL 0.5 MG/DL (0.2-1.0); BLOOD UREA NITROGEN 10 MG/DL (7-18); CALCIUM LEVEL 9.1 MG/DL (8.5-10.1); CARBON DIOXIDE LEVEL 24 MEQ/L (21-32); CHLORIDE LEVEL 104 MEQ/L (98-107); CREATININE FOR GFR 0.79 MG/DL (0.55-1.30); GLOMERULAR FILTRATION RATE > 60.0 (>60); GLUCOSE, FASTING 238 MG/DL (70-100); POTASSIUM SERUM 4.2 MEQ/L (3.5-5.1); SODIUM LEVEL 138 MEQ/L (136-145); TOTAL PROTEIN 7.2 GM/DL (6.4-8.2)
[2018-12-08 17:36] LABS: BASO % 0.2 % (0.0-1.0); EOS # 0.1 10^3/uL (0.0-0.50); EOS % 1.7 % (0.0-3.0); HEMATOCRIT 41.7 % (36.0-47.0); HEMOGLOBIN 14.1 g/dl (12.0-15.5); LYMPH # 2.3 10^3/uL (1.5-4.5); LYMPH % 41.5 % (24.0-44.0); MEAN CORPUSCULAR HEMOGLOBIN 30.1 pg (27.0-33.0); MEAN CORPUSCULAR HGB CONC 33.8 g/dl (32.0-36.5); MEAN CORPUSCULAR VOLUME 88.9 fl (80.0-96.0); MONO # 0.3 10^3/uL (0.0-0.8); MONO % 5.9 % (0.0-5.0); NEUTROPHILS # 2.8 10^3/uL (1.8-7.7); NEUTROPHILS % 50.3 % (36.0-66.0); PLATELET COUNT, AUTOMATED 217 10^3/uL (150-450); RED BLOOD COUNT 4.69 10^6/uL (4.00-5.40); WHITE BLOOD COUNT 5.5 10^3/uL (4.0-10.0)
[2018-12-12 14:24] LABS: ANCA-ATYPICAL <1:20 titer (Neg:<1:20); ANTI-SACCHAROMYCES CEREV. IgA <20.0 Units (0.0-24.9); CYTOPLASMIC NEUTROP AB ANCA-C <1:20 titer (Neg:<1:20); PERINUCLEAR AB ANCA-P <1:20 titer (Neg:<1:20)
== END ==
LOC: M WUC 14:02
PROVIDERS: ATTEND Internal Medicine Gastroenterology
DX: K31.84 Gastroparesis (principal)

== ENCOUNTER → 2019-04-18 | Outpatient (CLI) | payer OTHER ==
--- NOTE | 2019-04-18 17:05 | REP ---
Five views right hand: 04/18/2019. Indication: Right hand pain. Comparison: None. Findings: There is no acute fracture, subluxation or dislocation. No significant arthritic process is present. No erosive lesions of the visualized bones are present. Impression: No acute fracture. Electronically Signed by Gage Mojica DO 04/18/2019 04:57 P
== END ==
LOC: M WUC 09:09
PROVIDERS: ATTEND Nurse Practitioner Family
DX: M25.541 Pain in joints of right hand (principal)

== ENCOUNTER → 2019-11-07 | Outpatient (REF) | payer OTHER ==
[~2019-11-07] MED LIST changes: -LISI-1046 PO; +LISI2.5T2 PO; -SIMV40TA2 PO; +SIMV40TA20 PO
== END ==
LOC: M SFHCWAGY 08:42
PROVIDERS: ATTEND Nurse Practitioner Family
DX: Z12.4 Encounter for screening for malignant neoplasm of cervix (principal)

== ENCOUNTER 2019-11-26 22:26 | Emergency (ER) | payer OTHER ==
[~2019-11-26] VITALS: Ht 167.6 cm; Wt 115.9 kg
[2019-11-26] MEDS ORDERED: ABIL1TAB13 PO (22:34)
[2019-11-26] MEDS ORDERED: CLONI1TA PO (22:34)
[2019-11-26] MEDS ORDERED: WELL100T2 PO (22:34)
[2019-11-26] MEDS ORDERED: XANA0.25 PO (22:34)
[2019-11-26] MEDS ORDERED: LIDOCAINE 1% MDV 20ML VIAL As Ordered ONE (22:44)
[2019-11-26] MEDS ORDERED: LIDOCAINE 1% MDV 20ML VIAL SC ONE (22:45)
[2019-11-26] MEDS ORDERED: BOOSTRIX/ADACEL VACCINE (DIPHTH/PERTUSS/ACELL/TETANUS) 0.5ML SYR IM ONE (23:00)
[2019-11-26 23:25] VITALS: BP 104/64
== END 2019-11-26 23:32 | disposition home or self-care (01) ==
LOC: M ED 22:26
DX: S61.012A Laceration without foreign body of left thumb without damage to nail, initial encounter (principal); W26.8XXA Contact with other sharp object(s), not elsewhere classified, initial encounter; Y92.9 Unspecified place or not applicable; Y93.9 Activity, unspecified; Y99.9 Unspecified external cause status; E11.9 Type 2 diabetes mellitus without complications; I10 Essential (primary) hypertension; E28.2 Polycystic ovarian syndrome; F41.9 Anxiety disorder, unspecified; F32.9 Major depressive disorder, single episode, unspecified; K31.84 Gastroparesis; Z79.4 Long term (current) use of insulin; Z79.899 Other long term (current) drug therapy

== ENCOUNTER → 2020-06-26 | Outpatient (REF) | payer OTHER ==
[~2020-06-26] MED LIST changes: +ABIL1TAB13 PO; +CLONI1TA PO; +WELL100T2 PO; +XANA0.25 PO
[2020-06-27 12:27] LABS: BASO % 0.4 % (0.0-1.0); EOS # 0.1 10^3/uL (0.0-0.5); EOS % 1.3 % (0.0-3.0); HEMATOCRIT 43.8 % (36.0-47.0); HEMOGLOBIN 14.5 g/dl (12.0-15.5); LYMPH # 2.3 10^3/uL (1.5-5.0); MEAN CORPUSCULAR HEMOGLOBIN 29.5 pg (27.0-33.0); MEAN CORPUSCULAR HGB CONC 33.1 g/dl (32.0-36.5); MEAN CORPUSCULAR VOLUME 89.2 fl (80.0-96.0); MONO # 0.4 10^3/uL (0.0-0.8); MONO % 5.9 % (0.0-5.0); NEUTROPHILS # 4.3 10^3/uL (1.5-8.5); PLATELET COUNT, AUTOMATED 235 10^3/uL (150-450); RED BLOOD COUNT 4.91 10^6/uL (4.00-5.40); WHITE BLOOD COUNT 7.1 10^3/uL (4.0-10.0)
[2020-06-27 13:08] LABS: ALT/SGPT 26 U/L (12-78); BILIRUBIN,TOTAL 0.4 MG/DL (0.2-1.0); BLOOD UREA NITROGEN 12 MG/DL (7-18); CALCIUM LEVEL 10.1 MG/DL (8.5-10.1); CARBON DIOXIDE LEVEL 25 MEQ/L (21-32); CHLORIDE LEVEL 100 MEQ/L (98-107); CHOLESTEROL LEVEL 278 MG/DL (<200); CHOLESTEROL RISK RATIO 6.619 (<5); CREATININE FOR GFR 0.87 MG/DL (0.55-1.30); GLOMERULAR FILTRATION RATE > 60.0 (>60); GLUCOSE, FASTING 334 MG/DL (70-100); HDL CHOLESTEROL 42 MG/DL (>40); LDL CHOLESTEROL 187 MG/DL (<100); NON-HDL-C 236 MG/DL; POTASSIUM SERUM 5.5 MEQ/L (3.5-5.1); SODIUM LEVEL 135 MEQ/L (136-145); THYROID STIMULATING HORMONE 0.684 uIU/ML (0.358-3.740); THYROXINE (T4) 9.2 UG/DL (4.5-12.0); TOTAL PROTEIN 7.5 GM/DL (6.4-8.2); TOTAL T3 114.2 NG/DL (60.0-181.0); TRIGLYCERIDES LEVEL 243 MG/DL (<150)
[2020-06-27 16:12] LABS: HEMOGLOBIN A1c 10.4 %
== END ==
LOC: M SFHCCLAY 14:29
PROVIDERS: ATTEND Family Medicine
DX: E11.65 Type 2 diabetes mellitus with hyperglycemia (principal); R53.82 Chronic fatigue, unspecified; Z13.29 Encounter for screening for other suspected endocrine disorder; Z13.21 Encounter for screening for nutritional disorder; K31.84 Gastroparesis

== ENCOUNTER → 2020-11-11 | Outpatient (REF) | payer OTHER | LOC: M SFHCWAGY 10:02 | PROVIDERS: ATTEND Nurse Practitioner Women's Health | DX: Z12.4 Encounter for screening for malignant neoplasm of cervix (principal); Z77.9 Other contact with and (suspected) exposures hazardous to health ==

== ENCOUNTER → 2021-04-14 | Outpatient (REF) | payer OTHER ==
[~2021-04-14] MED LIST changes: -LISI2.5T2 PO; +LISI2.5T9 PO
[2021-04-15 12:02] LABS: HEMOGLOBIN 14.4 g/dl (12.0-15.5); RED BLOOD COUNT 4.76 10^6/uL (4.00-5.40); WHITE BLOOD COUNT 6.5 10^3/uL (4.0-10.0)
[2021-04-15 12:03] LABS: BASO % 0.3 % (0.0-1.0); EOS # 0.1 10^3/uL (0.0-0.5); EOS % 1.2 % (0.0-3.0); HEMATOCRIT 42.2 % (36.0-47.0); LYMPH # 1.5 10^3/uL (1.5-5.0); LYMPH % 23.5 % (24.0-44.0); MEAN CORPUSCULAR HEMOGLOBIN 30.3 pg (27.0-33.0); MEAN CORPUSCULAR HGB CONC 34.1 g/dl (32.0-36.5); MEAN CORPUSCULAR VOLUME 88.7 fl (80.0-96.0); MONO # 0.4 10^3/uL (0.0-0.8); MONO % 6.6 % (2.0-8.0); NEUTROPHILS # 4.4 10^3/uL (1.5-8.5); NEUTROPHILS % 67.9 % (36.0-66.0); PLATELET COUNT, AUTOMATED 252 10^3/uL (150-450)
[2021-04-15 12:15] LABS: ALBUMIN 3.8 GM/DL (3.2-5.2); ALT/SGPT 24 U/L (12-78); BILIRUBIN,TOTAL 0.6 MG/DL (0.2-1.0); BLOOD UREA NITROGEN 10 MG/DL (7-18); C REACTIVE PROTEIN QUANTITATIV 0.98 MG/DL (0.00-0.30); CALCIUM LEVEL 9.4 MG/DL (8.5-10.1); CARBON DIOXIDE LEVEL 24 MEQ/L (21-32); CHLORIDE LEVEL 103 MEQ/L (98-107); CREATININE FOR GFR 0.91 MG/DL (0.55-1.30); GLOMERULAR FILTRATION RATE > 60.0 (>60); GLUCOSE, FASTING 276 MG/DL (70-100); POTASSIUM SERUM 3.8 MEQ/L (3.5-5.1); SODIUM LEVEL 137 MEQ/L (136-145); TOTAL PROTEIN 8.1 GM/DL (6.4-8.2)
[2021-04-15 13:17] LABS: ERYTHROCYTE SEDIMENTATION RATE 43 mm/hr (0-20)
[2021-04-16 23:07] LABS: ANA (HEP2) Negative (.); CYCLIC CITRULLINATED PEPTIDE < 1 units (0-19); H PYLORI SERUM QUANT IGA <9.0 units (0.0-8.9); H PYLORI SERUM QUANT IGM <9.0 units (0.0-8.9); H PYLORI SERUM QUANT IgG ABY 0.24 (0.00-0.79); Lyme Disease IgG/IgM Antibodie <0.91 ISR (0.00-0.90); Lyme Disease IgM Ab Quantitati <0.80 index (0.00-0.79)
== END ==
LOC: M SFHCCLAY 15:09
PROVIDERS: ATTEND Family Medicine
DX: R11.0 Nausea (principal); E11.65 Type 2 diabetes mellitus with hyperglycemia; M25.50 Pain in unspecified joint

== ENCOUNTER → 2021-05-21 | Outpatient (CLI) | payer OTHER | LOC: M RAD 09:28 | PROVIDERS: ATTEND Family Medicine | DX: R11.0 Nausea (principal) ==

== ENCOUNTER → 2022-06-23 | Outpatient (REF) | payer OTHER ==
[2022-06-24 17:15] LABS: BASO % 0.6 % (0.0-1.0); EOS # 0.1 10^3/uL (0.0-0.5); EOS % 1.8 % (0.0-3.0); HEMATOCRIT 42.1 % (36.0-47.0); HEMOGLOBIN 14.1 g/dl (12.0-15.5); LYMPH # 2.2 10^3/uL (1.5-5.0); LYMPH % 33.1 % (24.0-44.0); MEAN CORPUSCULAR HEMOGLOBIN 29.7 pg (27.0-33.0); MEAN CORPUSCULAR HGB CONC 33.5 g/dl (32.0-36.5); MEAN CORPUSCULAR VOLUME 88.8 fl (80.0-96.0); MONO # 0.4 10^3/uL (0.0-0.8); MONO % 5.4 % (2.0-8.0); NEUTROPHILS # 3.8 10^3/uL (1.5-8.5); NEUTROPHILS % 58.6 % (36.0-66.0); PLATELET COUNT, AUTOMATED 275 10^3/uL (150-450); RED BLOOD COUNT 4.74 10^6/uL (4.00-5.40); WHITE BLOOD COUNT 6.5 10^3/uL (4.0-10.0)
[2022-06-24 17:35] LABS: ALKALINE PHOSPHATASE 67 U/L (46-116); ALT/SGPT 21 U/L (7.0-40); AST/SGOT 17 U/L (<34); BILIRUBIN,TOTAL 0.4 MG/DL (0.3-1.2); BLOOD UREA NITROGEN 14 MG/DL (9-23); CALCIUM LEVEL 9.8 MG/DL (8.5-10.1); CARBON DIOXIDE LEVEL 25 MMOL/L (20-31); CHLORIDE LEVEL 99 MMOL/L (98-107); CREATININE FOR GFR 0.46 MG/DL (0.55-1.30); GLOMERULAR FILTRATION RATE > 60.0 (>60); GLUCOSE, FASTING 260 MG/DL (60-100); POTASSIUM SERUM 4.8 MMOL/L (3.5-5.1); SODIUM LEVEL 135 MMOL/L (136-145); TOTAL PROTEIN 7.7 G/DL (5.7-8.2)
== END ==
LOC: M SFHCCAPE 14:47
PROVIDERS: ATTEND Physician Assistant
DX: R10.12 Left upper quadrant pain (principal)

== ENCOUNTER → 2023-08-06 | Outpatient (REF) | payer OTHER | LOC: M LAB REF 17:21 | PROVIDERS: ATTEND Physician Assistant Medical | DX: B34.9 Viral infection, unspecified (principal) ==

== ENCOUNTER → 2023-09-22 | Outpatient (REF) | payer OTHER | LOC: M LAB REF 11:44 | PROVIDERS: ATTEND Physician Assistant | DX: J02.9 Acute pharyngitis, unspecified (principal) ==

== ENCOUNTER → 2024-04-05 | Outpatient (CLI) | payer OTHER | LOC: M CLY 14:09 | PROVIDERS: ATTEND Family Medicine | DX: M95.2 Other acquired deformity of head (principal) ==

== ENCOUNTER → 2024-04-05 | Outpatient (REF) | payer OTHER ==
[2024-04-05 18:21] LABS: HEMATOCRIT 37.9 % (36.0-47.0); HEMOGLOBIN 13.2 g/dl (12.0-15.5); MEAN CORPUSCULAR HEMOGLOBIN 31.1 pg (27.0-33.0); MEAN CORPUSCULAR HGB CONC 34.8 g/dl (32.0-36.5); MEAN CORPUSCULAR VOLUME 89.2 fl (80.0-96.0); PLATELET COUNT, AUTOMATED 280 10^3/uL (150-450); RED BLOOD COUNT 4.25 10^6/uL (4.00-5.40); WHITE BLOOD COUNT 6.4 10^3/uL (4.0-10.0)
[2024-04-05 18:25] LABS: ALBUMIN 3.7 G/DL (3.2-5.2); ALKALINE PHOSPHATASE 65 U/L (35-104); ALT/SGPT 17 U/L (7.0-40); AST/SGOT 9 U/L (<34); BILIRUBIN,TOTAL 0.4 MG/DL (0.3-1.2); BLOOD UREA NITROGEN 10 MG/DL (9-23); CALCIUM LEVEL 9.9 MG/DL (8.5-10.1); CARBON DIOXIDE LEVEL 26 MMOL/L (20-31); CHLORIDE LEVEL 108 MMOL/L (98-107); CHOLESTEROL LEVEL 197 MG/DL (<200); CHOLESTEROL RISK RATIO 4.75 (<5); CREATININE FOR GFR 0.55 MG/DL (0.55-1.30); GLOMERULAR FILTRATION RATE > 60.0 (>60); GLUCOSE, FASTING 148 MG/DL (60-100); HDL CHOLESTEROL 41.4 MG/DL (>40); NON-HDL-C 155.6 MG/DL; POTASSIUM SERUM 3.7 MMOL/L (3.5-5.1); SODIUM LEVEL 139 MMOL/L (136-145); TOTAL PROTEIN 7.6 G/DL (5.7-8.2); TRIGLYCERIDES LEVEL 123 MG/DL (<150)
[2024-04-05 18:27] LABS: FREE T4 1.07 NG/DL (0.89-1.76); THYROID STIMULATING HORMONE 0.562 uIU/ML (0.55-4.78)
[2024-04-05 18:53] LABS: HEMOGLOBIN A1c 7.7 % (4.0-6.0)
== END ==
LOC: M SFHCCLAY 13:47
PROVIDERS: ATTEND Family Medicine
DX: E11.65 Type 2 diabetes mellitus with hyperglycemia (principal); E11.43 Type 2 diabetes mellitus with diabetic autonomic (poly)neuropathy

== ENCOUNTER → 2024-04-17 | Outpatient (REF) | payer OTHER | LOC: M LAB REF 08:24 | PROVIDERS: ATTEND Physician Assistant | DX: B34.9 Viral infection, unspecified (principal) ==

== ENCOUNTER → 2025-05-22 | Outpatient (REF) | payer OTHER | LOC: M LAB REF 11:44 | PROVIDERS: ATTEND Physician Assistant | DX: B34.9 Viral infection, unspecified (principal) ==